=== PATIENT | male | born 1995 | race Caucasian/White ===

== ENCOUNTER 2016-09-01 13:29 | Emergency (ER) | payer SELFPAY ==
--- OUTSIDE RECORDS SUMMARY | 2016-09-01 13:37 | XMS REPORT | Continuity of Care Document ---
Author Author [facility] Address Unknown Phone Unavailable Allergies Medications Problems Date Dx Coded Attending Type Code Diagnosis Diagnosed By 03/28/2010 FRED ROBERTS DO 477.9 RHINITIS 03/28/2010 FRED ROBERTS DO V15.05 OTHER PERSONAL HISTORY PRESENTING HAZARDS TO HEALTH, ALLERGY TO OTHER FOODS 01/02/2011 FRED ROBERTS DO 692.9 CONTACT DERMATITIS AND OTHER ECZEMA UNSPECIFIED CAUSE 02/21/2011 FRED ROBERTS DO V70.3 SPORTS/SCHOOL EXAM Procedures Results Encounters ACCT No. Visit Date/Time Discharge Status Pt. Type Provider Facility Loc./Unit Complaint [id number] 06/29/2014 09:39:00 06/29/2014 23: 59:59 CLS Outpatient FRED ROBERTS DO
== END 2016-09-01 14:19 | disposition home or self-care (01) ==
LOC: ER 13:33
DX: S61.411A Laceration without foreign body of right hand, initial encounter (principal); Z53.21 Procedure and treatment not carried out due to patient leaving prior to being seen by health care provider